=== PATIENT | female | born 1950 | race Caucasian/White ===

== ENCOUNTER → 2018-12-21 | Outpatient (CLI) | payer MEDICARE ==
--- NOTE | 2018-12-22 08:17 | REP ---
Left wrist series: Five views. History: Wrist injury. Findings: Five views left wrist demonstrate a nondisplaced fracture of the distal radial metaphysis with discontinuity and buckling of the dorsal cortex in the distal metaphysis. No ulnar fracture is appreciated. There are osteoarthritic changes at the wrist and there is diffuse osteopenia. No carpal fractures seen. Impression: Nondisplaced fracture of the distal radial metaphysis. Diffuse osteopenia. 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 Electronically Signed by Nirmal Craig MD 12/22/2018 08:09 A
== END ==
LOC: M WUC 19:48
PROVIDERS: ATTEND Physician Assistant
DX: S52.502A Unspecified fracture of the lower end of left radius, initial encounter for closed fracture (principal); X58.XXXA Exposure to other specified factors, initial encounter; Y92.89 Other specified places as the place of occurrence of the external cause; M19.032 Primary osteoarthritis, left wrist; M85.832 Other specified disorders of bone density and structure, left forearm